=== PATIENT | male | born 1965 | race Caucasian/White ===

== ENCOUNTER 2017-11-10 10:44 | Day surgery (SDC) | payer OTHER ==
[~2017-11-10] VITALS: Ht 182.9 cm; Wt 173.7 kg
[2017-11-10] MEDS ORDERED: DILT240C2 PO (11:28)
[2017-11-10] MEDS ORDERED: LACTATED RINGERS 1,000 ML IV SCH (11:28)
[2017-11-10] MEDS ORDERED: SERT100T5 PO (11:28)
[2017-11-10] MEDS ORDERED: METF500T4 PO (11:28)
[2017-11-10] MEDS ORDERED: BENA20TA2 PO (11:28)
[2017-11-10 11:29] VITALS: BP 167/94
[2017-11-10 12:15] LABS: ALANINE AMINOTRANSFERASE 60 U/L (12-78); ALBUMIN 3.5 g/dL (3.4-5.0); ANION GAP 10 mmol/L (5-15); CALCIUM 8.5 mg/dL (8.5-10.1); CHLORIDE 105 mmol/L (98-107); CREATININE 0.91 mg/dL (0.7-1.3)
[2017-11-10] MEDS ORDERED: FENTANYL PF 100 MCG/2ML ONE (12:17)
[2017-11-10 12:18] LABS: ALKALINE PHOSPHATASE 68 U/L (45-117); BILIRUBIN,TOTAL 0.5 mg/dL (0.2-1.0); TOTAL PROTEIN 7.8 g/dL (6.4-8.2)
[2017-11-10] MEDS ORDERED: MIDAZOLAM 1 MG/ML, 2ML ONE (12:18)
[2017-11-10] MEDS ORDERED: PROPOFOL 10 MG/ML, 50ML ONE (16:22)
[2017-11-10] MEDS ORDERED: PROPOFOL 10 MG/ML, 20ML ONE (16:22)
== END 2017-11-10 14:55 ==
LOC: OUT 10:44
PROVIDERS: ATTEND Internal Medicine
DX: Z12.11 Encounter for screening for malignant neoplasm of colon (principal); D12.5 Benign neoplasm of sigmoid colon; K29.70 Gastritis, unspecified, without bleeding; K57.30 Diverticulosis of large intestine without perforation or abscess without bleeding; K21.9 Gastro-esophageal reflux disease without esophagitis; G47.33 Obstructive sleep apnea (adult) (pediatric); I10 Essential (primary) hypertension; E11.9 Type 2 diabetes mellitus without complications; E66.01 Morbid (severe) obesity due to excess calories
CPT/HCPCS: 36415; 43239; 45380; 80053; 82962; 88305; 93005; J2250; J2704; J3010; J7120